=== PATIENT | male | born 1970 | race Caucasian/White ===

== ENCOUNTER 2017-05-10 13:25 | Emergency (ER) | payer OTHER ==
[2017-05-10 13:43] VITALS: BMI 29.0
[2017-05-10 13:44] VITALS: BP 115/81; PULSE 63; RESP 16; O2SAT 99
[2017-05-10 14:12] LABS: ALB/GLOB RATIO 1.4 (1.1-1.8); ALKALINE PHOSPHATASE 106 U/L (38-133); ALT/SGPT 68 U/L (7-56); AST/SGOT 47 U/L (15-59); BILIRUBIN,TOTAL 0.6 mg/dL (0.2-1.3); BLOOD UREA NITROGEN 15 mg/dL (7-21); CALCIUM 9.5 mg/dL (8.4-10.5); CARBON DIOXIDE 28 mmol/L (21-33); CHLORIDE 102 mmol/L (98-107); GFR AFRICAN-AMERICAN > 60; GLUCOSE,RANDOM 94 mg/dL (70-110); POTASSIUM 4.6 mmol/L (3.6-5.0); SODIUM 142 mmol/L (132-148); TOTAL PROTEIN 7.5 g/dL (5.8-8.3)
--- NOTE | 2017-05-10 14:12 | ED PDOC ---
Arrival/HPI - General Chief Complaint: Chest Pain Time Seen by Provider: 05/10/17 13:28 Historian: Patient - History of Present Illness Narrative History of Present Illness (Text): 05/10/17 14:11 A 46 year old male, whose past medical history includes hypothyroidism, allergic to contrast dye, presents to the emergency department with chest pain and shortness of breath, which began prior to arrival. The patient reports he was at home relaxing while waiting to to watch the game. When he suddenly began to have tightness and pressure on his chest, which caused him to have shortness of breath. The patient notes this chest pain is nothing compared to the chest pain he has had in the past. He admits to having acid reflux and headaches. He denies any smoking, recent travel, any prior history of DVT/PE, fever, cough, back pain, vision changes, hearing changes, headache, dysuria abdominal pain, nausea, diaphoresis, or any other complaints at this time. Patient notes treatment for a herniated disk at [facility] 1 month ago and a stress test 3 years ago. Time/Duration: Prior to Arrival Symptom Onset: Sudden Symptom Course: Unchanged Quality: Pressure, Tightness Activities at Onset: Rest, Light Context: Home Past Medical History - Provider Review Nursing Documentation Reviewed: Yes - Infectious Disease Hx of Infectious Diseases: None - Tetanus Immunization Tetanus Immunization: Unknown - Past Medical History Past Medical History: No Previous - Cardiac Hx Hypertension: Yes (NEWLY DX 2014) - Pulmonary Hx Asthma: Yes - Neurological Hx Neurological Disorder: Yes Hx Dizziness: Yes (05-07-15) - HEENT Hx HEENT Disorder: Yes (SINUS SX-DEVIATED SEPTUM) - Renal Hx Renal Disorder: No - Endocrine/Metabolic Hx Endocrine Disorders: No Hx Hypothyroidism: Yes - Hematological/Oncological Hx Blood Disorders: No - Integumentary Hx Dermatological Disorder: No - Musculoskeletal/Rheumatological Hx Musculoskeletal Disorders: No Hx Falls: Yes - Gastrointestinal Hx Gastrointestinal Disorders: Yes (APPENDECTOMY,INGUINAL HERNIA REPAIR BILATERAL) - Genitourinary/Gynecological Hx Genitourinary Disorders: No (ERECTILE DYSFUNCTION?) - Psychiatric Hx Anxiety: Yes Hx Substance Use: No - Surgical History Hx Appendectomy: Yes - Anesthesia Hx Anesthesia: Yes Hx Anesthesia Reactions: No Hx Malignant Hyperthermia: No - Suicidal Assessment Feels Threatened In Home Enviroment: No Family/Social History - Physician Review Nursing Documentation Reviewed: Yes Family/Social History: Unknown Family HX Smoking Status: Never Smoked Hx Alcohol Use: No Hx Substance Use: No Hx Substance Use Treatment: No Allergies/Home Meds Allergies/Adverse Reactions: Allergies Iodinated Contrast- Oral and IV Dye [Iodinated Contrast Media - IV Dye] Allergy (Verified 09/23/16 20:13) RASH Home Medications: Home Meds Medication Instructions Recorded Confirmed Levothyroxine Sodium 25 mcg PO DAILY 05/09/15 05/10/17 [Levothyroxine] Omeprazole [Omeprazole] 20 mg PO DAILY 09/23/16 05/10/17 Review of Systems - Review of Systems Constitutional: absent: Fevers Eyes: absent: Vision Changes ENT: absent: Hearing Changes Respiratory: SOB Cardiovascular: Chest Pain. absent: Edema, [place] Gastrointestinal: absent: Abdominal Pain, Nausea Genitourinary Male: absent: Dysuria Musculoskeletal: absent: Back Pain Skin: absent: Rash Neurological: absent: Headache Endocrine: absent: Diaphoresis Hemo/Lymphatic: absent: Easy Bleeding Psychiatric: Anxiety. absent: Suicidal Ideation Physical Exam - Physical Exam Narrative Physical Exam (Text): 05/10/17 14:20 Head: Atraumatic. Normocephalic. Eyes: PERRL. EOMI. Conjunctivae are not pale. ENT: Mucous membranes are moist and intact. Oropharynx is clear and symmetric. Neck: Supple. Full ROM. No JVD. No lymphadenopathy. Cardiovascular: Regular rate. Regular rhythm. No murmurs, rubs, or gallops. Distal pulses are 2+ and symmetric. Upper extremity pulses equal. Pulmonary/Chest: No evidence of respiratory distress. Clear to auscultation bilaterally. No wheezing, rales or rhonchi. Abdominal: Soft and non-distended. There is no tenderness. No rebound, guarding, or rigidity. No organomegaly. Good bowel sounds. Back: No CVA tenderness. Extremities: No edema. No cyanosis. No clubbing. Full range of motion in all extremities. No calf tenderness. Skin: Skin is warm and dry. No petechiae. No purpura. Neurological: Alert, awake, and oriented to person, place, time, and situation. Normal speech. Motor and sensory exam intact. Psychiatric: Appears to be anxious. Good eye contact. Normal interaction, affect, and behavior. Vital Signs Reviewed: Yes Vital Signs Pulse Resp BP Pulse Ox 05/10/17 13:26 63 16 115/81 99 Blood Pressure: Normal Pulse: Regular Respiratory Rate: Normal Appearance: Positive for: Well-Appearing, Non-Toxic, Comfortable Pain Distress: Mild Mental Status: Positive for: Alert and Oriented X 3 Medical Decision Making ED Course and Treatment: 05/10/17 14:21 Impression: A 46 year old male with chest pain and shortness of breath. Differential Diagnosis included but are not limited to: CAD vs. Anxiety vs. Reflux disease Plan: -- EKG -- Chest X-ray -- Labs -- Pepcid, Xanax -- Reassess and disposition Prior Visits: Notes and results from previous visits were reviewed. The patient was last seen in the emergency department on 09/23/16 for right side shoulder pain. The patient was discharged home. Progress Notes: Patient reports sudden onset of anterior squeezing chest pain associated with sensation of SOB. On initial exam, pain does not radiate to back, no hypoxia noted, no pleuritic pain noted. No calf pain. No prolonged travel. No history of smoking. EKG unremarkable. Patient states symptoms like this have occurred in past, although denies prior history of diagnosed CAD. He states he feels anxious, but states it is AFTER getting the discomfort. IV pepcid and xanax were given, and patient on re-evaluation had complete resolution of symptoms. As there is a change in the typical character and intensity of the pain he has experienced in the past, I have recommended admission to the hospital for observation and monitoring of symptoms, and stressed the limitations of ED lab evaluation and studies. He states he feels better and will follow-up if symptoms return, he has been advised of risks and expressed understanding of these risks. Patient will sign out against medical advice. 05/10/17 15:01 Leaving Against Medical Advice (AMA): This patient is choosing to leave against medical advice. I have personally explained to the patient that choosing to do so may result in permanent bodily harm or . I have discussed at great length that without further evaluation and monitoring there may be unforeseen circumstances and/or deterioration causing permanent bodily harm or as a result of their choice. The patient is alert, oriented, and shows the mental capacity to make clear decisions regarding the patients health care at this time. The patient continues to wish to leave against medical advice. In light of the patients decision to leave AMA, follow-up has been arranged and the patient is aware of the importance of following up as instructed. The patient has been advised that they should return to the ED immediately if they change their mind at any time, or if their condition begins to change or worsen in any way. - Lab Interpretations Lab Results: 05/10/17 13:40 05/10/17 13:40 Lab Results 05/10/17 13:40: TSH 3rd Generation 1.56 05/10/17 13:40: Sodium 142, Potassium 4.6, Chloride 102, Carbon Dioxide 28, Anion Gap 17, BUN 15, Creatinine 0.9, Est GFR ( Amer) > 60, Est GFR (Non- Af Amer) > 60, Random Glucose 94, Calcium 9.5, Total Bilirubin 0.6, AST 47, ALT 68 H, Alkaline Phosphatase 106, Total Creatine Kinase 150, Troponin I < 0.01, Total Protein 7.5, Albumin 4.4, Globulin 3.1, Albumin/Globulin Ratio 1.4 05/10/17 13:40: PT 11.9 H, INR 1.10 H, APTT 30.3 05/10/17 13:40: WBC 4.2 L, RBC 4.70, Hgb 14.7, Hct 41.2 L, MCV 87.7, MCH 31.3, MCHC 35.7, RDW 12.4, Plt Count 485 H, MPV 8.8, Gran % 41.5 L, Lymph % (Auto) 43.3 H, [place] % (Auto) 10.5 H, Eos % (Auto) 4.0, Baso % (Auto) 0.7, Gran # 1.74, Lymph # 1.8, [place] # 0.4, Eos # 0.2, Baso # 0.03 - RAD Interpretation Radiology Orders: 05/10/17 13:48 CHEST PORTABLE [RAD] Stat Scientific Photographer: Radiologist - EKG Interpretation EKG Interpretation (Text): EKG at 13:28 normal sinus rhythm rate of [address] elevations Interpreted by ED Physician: Yes Type: 12 lead EKG - Medication Orders Current Medication Orders: Discontinued Medications Alprazolam (Xanax) 0.25 mg PO STAT STA Stop: 05/10/17 14:06 Last Admin: 05/10/17 14:10 Dose: 0.25 mg Famotidine (Pepcid) 20 mg IVP STAT STA Stop: 05/10/17 14:06 Last Admin: 05/10/17 14:11 Dose: 20 mg - Scribe Statement The provider has reviewed the documentation as recorded by the Rayshawn Silva Provider Scribe Attestation: All medical record entries made by the Scribe were at my direction and personally dictated by me. I have reviewed the chart and agree that the record accurately reflects my personal performance of the history, physical exam, medical decision making, and the department course for this patient. I have also personally directed, reviewed, and agree with the discharge instructions and disposition. Disposition/Present on Arrival - Present on Arrival Any Indicators Present on Arrival: No History of DVT/PE: No History of Uncontrolled Diabetes: No Urinary Catheter: No History of Decub. Ulcer: No History Surgical Site Infection Following: None - Disposition Have Diagnosis and Disposition been Completed?: Yes Diagnosis: Chest pain, Anxiety Disposition: AGAINST MEDICAL ADVICE Disposition Time: 14:50 Patient Plan: Discharge Condition: GOOD Discharge Instructions (ExitCare): Chest Pain (ED) Referrals: PCP,NO [Primary Care Provider] - Follow up with primary Forms: [employer] (Portuguese)
[2017-05-10 14:13] LABS: BASO # 0.03 K/mm3 (0.0-2.0); BASO % 0.7 % (0.0-3.0); EOS # 0.2 (0.0-0.7); GRAN # 1.74 (1.4-6.5); GRAN % 41.5 % (50.0-68.0); HEMATOCRIT 41.2 % (42.0-52.0); LYMPH # 1.8 (1.2-3.4); LYMPH % 43.3 % (22.0-35.0); MEAN CELL VOLUME 87.7 fl (80.0-105.0); MEAN CORPUSCULAR HEMOGLOBIN 31.3 pg (25.0-35.0); MEAN CORPUSCULAR HGB CONC 35.7 g/dl (31.0-37.0); MEAN PLATELET VOLUME 8.8 fl (7.0-11.0); MONO # 0.4 (0.1-0.6); MONO % 10.5 % (1.0-6.0); RED CELL DISTRIBUTION WIDTH 12.4 % (11.5-14.5); WHITE BLOOD COUNT 4.2 10^3/ul (4.5-11.0)
[2017-05-10 14:23] LABS: TROPONIN I < 0.01 ng/mL
[2017-05-10 14:51] LABS: INR 1.1 (0.93-1.08); PARTIAL THROMBOPLASTIN TIME 30.3 Seconds (23.7-30.8)
--- NOTE | 2017-05-10 15:09 | RAD ---
HISTORY: chest COMPARISON: No prior. FINDINGS: LUNGS: No active pulmonary disease. PLEURA: No significant pleural effusion identified, no pneumothorax apparent. CARDIOVASCULAR: Normal. OSSEOUS STRUCTURES: No significant abnormalities. VISUALIZED UPPER ABDOMEN: Normal. OTHER FINDINGS: None. IMPRESSION: No active disease.
--- NOTE | 2017-05-11 10:13 | CARD ---
APPROVED REPORT EKG Measurement Heart [id number] <Conclusion> Normal sinus rhythm Normal ECG
== END 2017-05-10 15:10 | disposition left against medical advice (07) ==
LOC: ED 13:25
DX: F41.9 Anxiety disorder, unspecified (principal); R07.9 Chest pain, unspecified

== ENCOUNTER 2017-06-17 18:29 | Emergency (ER) | payer OTHER ==
[2017-06-17 18:29] VITALS: BMI 29.0
[2017-06-17 19:11] VITALS: TEMP 98.3
[2017-06-17] MEDS ORDERED: diaZEpam 10 mg/2 ml Inj IVP ONE (19:16)
[2017-06-17] MEDS ORDERED: Sodium Chloride 0.9% 1,000 ML IV STA (19:16)
--- NOTE | 2017-06-17 19:20 | ED PDOC ---
Arrival/HPI - General Chief Complaint: Pain, Chronic Time Seen by Provider: 06/17/17 19:08 Historian: Patient - History of Present Illness Narrative History of Present Illness (Text): 06/17/17 19:18 46 y/o male, pmh including hypothyroidism/multiple lumbar disc herniations, allergic to contrast, received epidural injection on 06/02/2017 c/o bilateral leg crampin and pain x 3 days. Pt. stated that he has no low back pain, just bilateral thigh and calfs with occasional muscle contraction and occasionally pain, no numbness or tingling, no night sweat, no rash, no other medical or psychological complaints. Past Medical History - Provider Review Nursing Documentation Reviewed: Yes - Infectious Disease Hx of Infectious Diseases: None - Tetanus Immunization Tetanus Immunization: Unknown - Past Medical History Past Medical History: No Previous - Cardiac Hx Cardiac Disorders: Yes Hx Hypertension: Yes (NEWLY DX 2014) - Pulmonary Hx Respiratory Disorders: Yes Hx Asthma: Yes - Neurological Hx Neurological Disorder: Yes Hx Dizziness: Yes (05-07-15) - HEENT Hx HEENT Disorder: Yes (SINUS SX-DEVIATED SEPTUM) - Renal Hx Renal Disorder: No - Endocrine/Metabolic Hx Endocrine Disorders: Yes Hx Hypothyroidism: Yes - Hematological/Oncological Hx Blood Disorders: No - Integumentary Hx Dermatological Disorder: No - Musculoskeletal/Rheumatological Hx Musculoskeletal Disorders: Yes Hx Back Pain: Yes Hx Falls: Yes - Gastrointestinal Hx Gastrointestinal Disorders: Yes (APPENDECTOMY,INGUINAL HERNIA REPAIR BILATERAL) - Genitourinary/Gynecological Hx Genitourinary Disorders: No (ERECTILE DYSFUNCTION?) - Psychiatric Hx Anxiety: Yes Hx Substance Use: No - Surgical History Hx Appendectomy: Yes - Anesthesia Hx Anesthesia: Yes Hx Anesthesia Reactions: No Hx Malignant Hyperthermia: No - Suicidal Assessment Feels Threatened In Home Enviroment: No Family/Social History - Physician Review Nursing Documentation Reviewed: Yes Family/Social History: Unknown Family HX Smoking Status: Never Smoked Hx Alcohol Use: No Hx Substance Use: No Hx Substance Use Treatment: No Allergies/Home Meds Allergies/Adverse Reactions: Allergies Iodinated Contrast- Oral and IV Dye [Iodinated Contrast Media - IV Dye] Allergy (Verified 06/17/17 19:06) RASH Home Medications: Home Meds Medication Instructions Recorded Confirmed Levothyroxine Sodium 25 mcg PO DAILY 05/09/15 06/17/17 [Levothyroxine] Omeprazole [Omeprazole] 20 mg PO DAILY 09/23/16 06/17/17 Omeprazole [Omeprazole] 20 mg PO DAILY 06/17/17 06/17/17 Review of Systems - Review of Systems Constitutional: absent: Fatigue, Fevers Eyes: absent: Vision Changes ENT: absent: Hearing Changes Respiratory: absent: SOB, Cough Cardiovascular: absent: Chest Pain Gastrointestinal: absent: Abdominal Pain, Nausea, Vomiting Musculoskeletal: Arthralgias, Myalgias. absent: Back Pain, Neck Pain Skin: absent: Rash, Pruritis Neurological: absent: Headache Psychiatric: absent: Anxiety, Depression Physical Exam Vital Signs Reviewed: Yes Vital Signs Temp Pulse Resp BP Pulse Ox 06/17/17 18:51 98.3 F 64 18 137/82 99 Temperature: Afebrile Blood Pressure: Normal Pulse: Regular Respiratory Rate: Normal Appearance: Positive for: Well-Appearing, Non-Toxic, Comfortable Pain Distress: Moderate Mental Status: Positive for: Alert and Oriented X 3 - Systems Exam Head: Present: Atraumatic, Normocephalic Pupils: Present: PERRL Extroacular Muscles: Present: EOMI Conjunctiva: Present: Normal Mouth: Present: Moist Mucous Membranes Neck: Present: Normal Range of Motion Respiratory/Chest: Present: Clear to Auscultation, Good Air Exchange. No: Respiratory Distress, Accessory Muscle Use Cardiovascular: Present: Regular Rate and Rhythm, Normal S1, S2. No: Murmurs Abdomen: Present: Normal Bowel Sounds. No: Tenderness, Distention, Peritoneal Signs Back: Present: Normal Inspection, Other (Thoracic to LS spine: no midline tenderness or step off, no rash, no ecchymosis, FROM without limitation , sensation intact, motor 5/5. ). No: CVA Tenderness, Midline Tenderness, Paraspinal Tenderness, Pain with Leg Raise, Decubitus Ulcer Upper Extremity: Present: Normal Inspection. No: Cyanosis, Edema Lower Extremity: Present: Normal Inspection, Other (Bilateral lower extremities : no tenderness or swelling, no deformity, no cellulitis or ulcer, FROM without limitation, sensation intact, motor 5/5, +DPPT pulses, capillary refill< 2 seconds, neurovascular intact. ). No: Edema Neurological: Present: GCS=15, CN II-XII Intact, Speech Normal, Motor Func Grossly Intact, Gait Normal, Memory Normal Skin: Present: Warm, Dry, Normal Color. No: Rashes Psychiatric: Present: Alert, Oriented x 3, Normal Insight, Normal Concentration Medical Decision Making ED Course and Treatment: 06/17/17 19:24 -labs -CT LS spine -Bilateral lower extremity venuous doppler -IVF/toradol/valium -observe and reassess 06/17/17 22:08 -Bilateral lower extremities venuous doppler: as per preliminary report, there is no acute DVT -CT Lumbar spine: No acute CT abnormality of the lumbar spine identified. -Labs are non-significant. -Pt. feels much better after the IVF and medications, no muscle contractions or tremor, request to be discharged home, will discharge home. -Discharge home with flexeril, naproxen, stay hydrated, follow up with your own pmd and orthopedic within 2 days, return to the ER for any new or worsening signs or symptoms. - Lab Interpretations Lab Results: 06/17/17 19:35 06/17/17 19:35 Lab Results 06/17/17 19:35: WBC 5.0, RBC 4.66, Hgb 14.5, Hct 40.6 L, MCV 87.1, MCH 31.1, MCHC 35.7, RDW 12.3, Plt Count 438, MPV 8.7, Gran % 46.9 L, Lymph % (Auto) 40.9 H, [place] % (Auto) 7.8 H, Eos % (Auto) 3.4, Baso % (Auto) 1.0, Gran # 2.35, Lymph # 2.1, [place] # 0.4, Eos # 0.2, Baso # 0.05 06/17/17 19:35: Sodium 143, Potassium 4.0, Chloride 103, Carbon Dioxide 29, Anion Gap 15, BUN 12, Creatinine 1.0, Est GFR ( Amer) > 60, Est GFR (Non- Af Amer) > 60, Random Glucose 105, Calcium 9.4, Magnesium 2.1, Total Bilirubin 0.6, AST 39, ALT 65 H, Alkaline Phosphatase 92, Total Creatine Kinase 120, Total Protein 7.5, Albumin 4.5, Globulin 3.1, Albumin/Globulin Ratio 1.5 I have reviewed the lab results: Yes Interpretation: No clinic. lab abnormalty - RAD Interpretation Radiology Orders: 06/17/17 19:15 DUPLEX LOWER EXTRM VEIN BILAT [US] Stat 06/17/17 19:21 LUMBAR SPINE W/O CONTRAST [CT] Stat Bilateral lower extremities venuous doppler: as per preliminary report, there is no acute DVT CT Lumbar spine: FINDINGS: VERTEBRAE: No acute fractures visualized. No evidence of significant vertebral subluxation. No evidence of acute vertebral compression fractures. No evidence of destructive or otherwise aggressive-appearing vertebral lesions. DISCS/SPINAL CANAL/NEURAL FORAMINA: Minimal, multilevel degenerative disc disease is noted, but overall the lumbar disc heights are preserved. No evidence of bony spinal canal stenosis. SOFT TISSUES: No acute abnormality of the visualized soft tissues is seen. KIDNEYS AND URETERS: Low density probable cyst in the left kidney IMPRESSION: - No acute CT abnormality of the lumbar spine identified. - See above for remaining findings. Thank you for allowing us to participate in the care of your patient. Dictated and Authenticated by: Shayna Gastelum MD 06/17/2017 9:56 PM Eastern Time ([place] & [place]) Biscuit Packer: Radiologist - Medication Orders Current Medication Orders: Discontinued Medications Diazepam (Valium) 7.5 mg IVP ONCE ONE PRN Reason: Protocol Stop: 06/17/17 19:17 Last Admin: 06/17/17 19:42 Dose: 7.5 mg IVP Administration Document 06/17/17 19:42 HI (Rec: 06/17/17 19:42 [email or web address]) Charges for Administration # of IVP Administrations 1 Sodium Chloride (Sodium Chloride 0.9%) 1,000 mls @ 999 mls/hr IV .Q1H1M STA Stop: 06/17/17 20:16 Last Admin: 06/17/17 19:30 Dose: 999 mls/hr eMAR Start Stop Document 06/17/17 19:30 HI (Rec: 06/17/17 19:39 [email or web address]) Intravenous Solution Start Date 09/27/17 Start Time 19:30 Ketorolac Tromethamine (Toradol) 30 mg IVP STAT STA Stop: 06/17/17 19:17 Last Admin: 06/17/17 19:39 Dose: 30 mg MAR Pain Assessment Document 06/17/17 19:39 HI (Rec: 06/17/17 19:42 [facility] Pain Reassessment Is this a pain reassessment? No Sleep Is patient sleeping during reassessment? No Presence of Pain Presence of Pain Yes IVP Administration Document 06/17/17 19:39 HI (Rec: 06/17/17 19:42 [facility] Charges for Administration # of IVP Administrations 1 - PA / [employer] MEMBER / Resident Statement / has reviewed & agrees with the documentation as recorded. Disposition/Present on Arrival - Present on Arrival Any Indicators Present on Arrival: No History of DVT/PE: No History of Uncontrolled Diabetes: No Urinary Catheter: No History of Decub. Ulcer: No History Surgical Site Infection Following: None - Disposition Have Diagnosis and Disposition been Completed?: Yes Diagnosis: Leg pain Disposition: HOME/ ROUTINE Disposition Time: 22:09 Patient Plan: Discharge Condition: IMPROVED Additional Instructions: -Discharge home with flexeril, naproxen, stay hydrated, follow up with your own pmd and orthopedic within 2 days, return to the ER for any new or worsening signs or symptoms. Prescriptions: Cyclobenzaprine [Cyclobenzaprine HCl] 10 mg PO TID PRN #21 tab PRN Reason: Other Naproxen 500 mg PO BID PRN #12 tab PRN Reason: Other Referrals: Jose Manuel Hahn MD [Primary Care Provider] - Follow up with primary Michael Gill DO [Staff Provider] - Follow up with primary Forms: [employer] (Citizen Of [place]), SCHOOL NOTE
[2017-06-17 19:48] LABS: BASO # 0.05 K/mm3 (0.0-2.0); EOS # 0.2 (0.0-0.7); EOS % 3.4 % (1.5-5.0); GRAN # 2.35 (1.4-6.5); GRAN % 46.9 % (50.0-68.0); HEMATOCRIT 40.6 % (42.0-52.0); LYMPH # 2.1 (1.2-3.4); LYMPH % 40.9 % (22.0-35.0); MEAN CELL VOLUME 87.1 fl (80.0-105.0); MEAN CORPUSCULAR HEMOGLOBIN 31.1 pg (25.0-35.0); MEAN CORPUSCULAR HGB CONC 35.7 g/dl (31.0-37.0); MEAN PLATELET VOLUME 8.7 fl (7.0-11.0); MONO # 0.4 (0.1-0.6); MONO % 7.8 % (1.0-6.0); RED CELL DISTRIBUTION WIDTH 12.3 % (11.5-14.5)
[2017-06-17 19:54] LABS: ALB/GLOB RATIO 1.5 (1.1-1.8); ALKALINE PHOSPHATASE 92 U/L (38-126); ALT/SGPT 65 U/L (7-56); AST/SGOT 39 U/L (17-59); BILIRUBIN,TOTAL 0.6 mg/dL (0.2-1.3); BLOOD UREA NITROGEN 12 mg/dL (7-21); CALCIUM 9.4 mg/dL (8.4-10.5); CARBON DIOXIDE 29 mmol/L (21-33); CHLORIDE 103 mmol/L (98-107); GFR AFRICAN-AMERICAN > 60; GLUCOSE,RANDOM 105 mg/dL (70-110); MAGNESIUM 2.1 mg/dL (1.7-2.2); SODIUM 143 mmol/L (132-148); TOTAL PROTEIN 7.5 g/dL (5.8-8.3)
--- NOTE | 2017-06-17 21:56 | CT ---
EXAM: CT Lumbar Spine Without Intravenous Contrast EXAM DATE/TIME: 06/17/2017 7:21 PM CLINICAL HISTORY: 46 years old, male; Pain; Low back pain and other: Pain both lower extremities; Additional info: Chronic low back pain, bilateral leg pain TECHNIQUE: Axial computed tomography images of the lumbar spine without intravenous contrast. All CT scans at this facility use one or more dose reduction techniques, viz.: automated exposure control; ma/kV adjustment per patient size (including targeted exams where dose is matched to indication; i.e. head); or iterative reconstruction technique. Coronal and sagittal reformatted images were created and reviewed. COMPARISON: No relevant prior studies available. FINDINGS: VERTEBRAE: No acute fractures visualized. No evidence of significant vertebral subluxation. No evidence of acute vertebral compression fractures. No evidence of destructive or otherwise aggressive-appearing vertebral lesions. DISCS/SPINAL CANAL/NEURAL FORAMINA: Minimal, multilevel degenerative disc disease is noted, but overall the lumbar disc heights are preserved. No evidence of bony spinal canal stenosis. SOFT TISSUES: No acute abnormality of the visualized soft tissues is seen. KIDNEYS AND URETERS: Low density probable cyst in the left kidney. IMPRESSION: - No acute CT abnormality of the lumbar spine identified. - See above for remaining findings.
[2017-06-17 22:30] VITALS: BP 124/54; PULSE 60; RESP 16; O2SAT 100
--- NOTE | 2017-06-18 15:05 | US ---
HISTORY: Leg pain and swelling. Evaluate for DVT PHYSICIAN(S): Perry Hernandez MD. TECHNIQUE: Duplex sonography and color-flow Doppler with graded compression were used to evaluate the deep venous systems of both lower extremities. FINDINGS: The visualized deep venous systems of both lower extremities are sonographically normal and compressible. Normal wave forms and augmentation are seen. There is no sonographic evidence for deep venous thrombosis in the visualized segments of both lower extremities. IMPRESSION: No sonographic evidence for deep venous thrombosis in the visualized segments of both lower extremities.
== END 2017-06-17 22:37 | disposition home or self-care (01) ==
LOC: ED 18:29
DX: M79.604 Pain in right leg (principal); M79.605 Pain in left leg; I10 Essential (primary) hypertension
CPT/HCPCS: 72131; 80053; 82550; 83735; 85025; 93970; 96374; 96375; 99284; J1885; J3360; J7040

== ENCOUNTER 2017-08-31 10:51 | Observation (INO) | payer OTHER ==
--- NOTE | 2017-08-31 11:01 | ED PDOC ---
Arrival/HPI - General Time Seen by Provider: 08/31/17 10:59 Historian: Patient - History of Present Illness Narrative History of Present Illness (Text): 08/31/17 11:01 46 y/o male, pmh including gerd/hypothyroidism, allergic to IV contrast only, c/ o rectal pain x 2 days. Aching pain, painful to sit and touch, no fever or chills, no headache or night sweat, no rash, no numbness or tingling, no palpitation, no fever or chills, no other medical or psychological complaints. Past Medical History - Provider Review Nursing Documentation Reviewed: Yes - Infectious Disease Hx of Infectious Diseases: None - Tetanus Immunization Tetanus Immunization: Unknown - Past Medical History Past Medical History: No Previous - Cardiac Hx Cardiac Disorders: Yes Hx Hypertension: Yes (NEWLY DX 2014) - Pulmonary Hx Respiratory Disorders: Yes Hx Asthma: Yes - Neurological Hx Neurological Disorder: Yes Hx Dizziness: Yes (05-07-15) - HEENT Hx HEENT Disorder: Yes (SINUS SX-DEVIATED SEPTUM) - Renal Hx Renal Disorder: No - Endocrine/Metabolic Hx Endocrine Disorders: No - Hematological/Oncological Hx Blood Disorders: No - Integumentary Hx Dermatological Disorder: No - Musculoskeletal/Rheumatological Hx Musculoskeletal Disorders: No - Gastrointestinal Hx Gastrointestinal Disorders: Yes (APPENDECTOMY,INGUINAL HERNIA REPAIR BILATERAL) - Genitourinary/Gynecological Hx Genitourinary Disorders: No (ERECTILE DYSFUNCTION?) - Psychiatric Hx Anxiety: Yes Hx Substance Use: No - Surgical History Hx Appendectomy: Yes - Anesthesia Hx Anesthesia: Yes Hx Anesthesia Reactions: No Hx Malignant Hyperthermia: No - Suicidal Assessment Feels Threatened In Home Enviroment: No Family/Social History - Physician Review Nursing Documentation Reviewed: Yes Family/Social History: Unknown Family HX Smoking Status: Never Smoked Hx Alcohol Use: No Hx Substance Use: No Hx Substance Use Treatment: No Allergies/Home Meds Allergies/Adverse Reactions: Allergies Iodinated Contrast- Oral and IV Dye [Iodinated Contrast Media - IV Dye] Allergy (Verified 08/31/17 17:44) RASH Home Medications: Home Meds Medication Instructions Recorded Confirmed Levothyroxine Sodium 100 mcg PO DAILY 05/09/15 08/31/17 [Levothyroxine] Omeprazole [Omeprazole] 20 mg PO DAILY 06/17/17 08/31/17 Aspirin [Ecotrin] 81 mg PO DAILY 08/31/17 08/31/17 Review of Systems - Review of Systems Constitutional: absent: Fatigue, Fevers Eyes: absent: Vision Changes ENT: absent: Hearing Changes Respiratory: absent: SOB, Cough Cardiovascular: absent: Chest Pain Gastrointestinal: Other (+rectal pain). absent: Abdominal Pain, Nausea, Vomiting Skin: absent: Rash, Pruritis Neurological: absent: Headache, Dizziness Psychiatric: absent: Anxiety, Depression Physical Exam Vital Signs Temp Pulse Resp BP Pulse Ox 08/31/17 16:42 98.3 F 63 16 125/89 98 08/31/17 15:59 65 18 145/98 H 99 08/31/17 13:09 67 18 131/87 98 08/31/17 13:00 67 18 131/87 98 08/31/17 11:05 98.3 F 70 18 139/90 99 Temperature: Afebrile Blood Pressure: Normal Pulse: Regular Respiratory Rate: Normal Appearance: Positive for: Well-Appearing, Non-Toxic, Comfortable Pain Distress: Moderate Mental Status: Positive for: Alert and Oriented X 3 - Systems Exam Head: Present: Atraumatic, Normocephalic Pupils: Present: PERRL Extroacular Muscles: Present: EOMI Conjunctiva: Present: Normal Mouth: Present: Moist Mucous Membranes Neck: Present: Normal Range of Motion Respiratory/Chest: Present: Clear to Auscultation, Good Air Exchange. No: Respiratory Distress, Accessory Muscle Use Cardiovascular: Present: Regular Rate and Rhythm, Normal S1, S2. No: Murmurs Abdomen: Present: Normal Bowel Sounds. No: Tenderness, Distention, Peritoneal Signs Rectal: Present: Other (+ttp on the perianal region especially touching the rectal sphincter region. ). No: Occult Blood, Rectal Tenderness, Gross Blood, Melena, Hemorrhoids, Normal Rectal Tone Back: Present: Normal Inspection Upper Extremity: Present: Normal Inspection. No: Cyanosis, Edema Lower Extremity: Present: Normal Inspection. No: Edema Neurological: Present: GCS=15, Speech Normal, Motor Func Grossly Intact, Gait Normal, Memory Normal Skin: Present: Warm, Dry, Normal Color. No: Rashes Psychiatric: Present: Alert, Oriented x 3, Normal Insight, Normal Concentration Medical Decision Making ED Course and Treatment: 08/31/17 11:35 -Labs -CT abdomen and pelvis with oral contrast -IVF/pepcid/zofran/toradol -Pt. examined by his surgeon DR. Dk Pillai and he agreed on the orders -Observe and reassess 08/31/17 15:35 -Labs are non-significant -CT abdomen and pelvis show no acute findings -Paging Dr. Peng for update. 08/31/17 15:54 -Dr. Peng called back, discussed the case in detail as the patient still in pain, suggest to admit to his service and request DR. Wheat for medical consult , request paging vice president of advertising. -I discussed with DR. Griffin and discussed about the case, he will put in the admission order. 08/31/17 16:12 -I spoke to the vice president of advertising Dr. Gupta, discussed about the case/labs/ radiology result, he will evaluate the patient and discuss with Dr. Peng. -EKG: SB @ 56 BPM, no ST elevation or depression, chronic T wave inversions noted on lead III and aVF, compared with previous ekg. 08/31/17 20:29 -Chest xray: no active disease - Lab Interpretations Lab Results: 08/31/17 11:40 08/31/17 11:40 Lab Results 08/31/17 12:38: Blood Type Confirm O NEGATIVE 08/31/17 11:40: Blood Type O NEGATIVE, Antibody Screen Negative, BBK History Checked No verified bt 08/31/17 11:40: PT 13.0 H, INR 1.18 H, APTT 33.3 08/31/17 11:40: Sodium 142, Potassium 4.2, Chloride 102, Carbon Dioxide 28, Anion Gap 16, BUN 13, Creatinine 0.9, Est GFR ( Amer) > 60, Est GFR (Non- Af Amer) > 60, Random Glucose 122 H, Calcium 9.4, Magnesium 2.0, Total Bilirubin 0.6, AST 36, ALT 48, Alkaline Phosphatase 83, Total Protein 7.9, Albumin 4.4, Globulin 3.5, Albumin/Globulin Ratio 1.3 08/31/17 11:40: WBC 4.7, RBC 4.83, Hgb 15.1, Hct 44.1, MCV 91.3 D, MCH 31.3, MCHC 34.2, RDW 12.8, Plt Count 470 H, MPV 9.1, Gran % 52.0, Lymph % (Auto) 36.9 H, [place] % (Auto) 7.3 H, Eos % (Auto) 3.2, Baso % (Auto) 0.6, Gran # 2.42, Lymph # 1.7, [place] # 0.3, Eos # 0.2, Baso # 0.03 I have reviewed the lab results: Yes - RAD Interpretation Radiology Orders: 08/31/17 11:26 ABDOMEN & PELVIS [ABD & PELVIS PO CONTRAST ONLY] [CT] Stat 08/31/17 15:53 CHEST PORTABLE [RAD] Stat PROCEDURE: CT Abdomen and Pelvis without intravenous contrast HISTORY: perianal pain, leakage?, fistula? abscess? COMPARISON: None. TECHNIQUE: Without contrast.. Contrast Dose: Radiation dose: Total exam DLP = 523 mGy-cm. This CT exam was performed using one or more of the following dose reduction techniques: Automated exposure control, adjustment of the mA and/or kV according to patient size, and/or use of iterative reconstruction technique. FINDINGS: LOWER THORAX: Unremarkable. LIVER: Unremarkable. No gross lesion or ductal dilatation. GALLBLADDER AND BILE DUCTS: Unremarkable. PANCREAS: Unremarkable. No gross lesion or ductal dilatation. SPLEEN: Unremarkable. ADRENALS: Unremarkable. No mass. KIDNEYS AND URETERS: Unremarkable. No hydronephrosis. No solid mass. VASCULATURE: Unremarkable. No aortic aneurysm. BOWEL: Unremarkable. No obstruction. No gross mural thickening. APPENDIX: Unremarkable. Normal appendix. PERITONEUM: Unremarkable. No free fluid. No free air. LYMPH NODES: Unremarkable. No enlarged lymph nodes. BLADDER: Unremarkable. REPRODUCTIVE: Unremarkable. BONES: No acute fracture. OTHER FINDINGS: There are no inflammatory changes seen in the region of the perineum to suggest fistula or abscess IMPRESSION: No acute findings Chest xray: no active disease Networks Computer Consultant: Radiologist - EKG Interpretation EKG Interpretation (Text): 08/31/17 16:10 -EKG: SB @ 56 BPM, no ST elevation or depression, chronic T wave inversions noted on lead III and aVF, compared with previous ekg. Interpreted by ED Physician: Yes Type: 12 lead EKG Comparison: Com.w/previous EKG - Medication Orders Current Medication Orders: Hydromorphone HCl (Dilaudid) 0.5 mg IVP Q4H PRN PRN Reason: Pain, severe (8-10) Metronidazole (Flagyl) 100 mls @ 100 mls/hr IV Q8 ABDI PRN Reason: Protocol Ceftriaxone Sodium (Rocephin 1 Gram Ivpb (D5w)) 1 gm in 100 mls @ 100 mls/hr IVPB DAILY ABDI PRN Reason: Protocol Levothyroxine Sodium (Synthroid) 100 mcg PO 0600 ABDI Magnesium Citrate (Citrate Of Mag) 150 ml PO ONCE ONE Stop: 08/31/17 20:28 Neomycin Sulfate (Neomycin Tab) 500 mg PO Q6 ABDI Ondansetron HCl (Zofran Inj) 4 mg IVP Q4 PRN PRN Reason: Nausea/Vomiting Pantoprazole Sodium (Protonix Inj) 40 mg IVP DAILY ABDI Discontinued Medications Famotidine (Pepcid) 20 mg IVP STAT STA Stop: 08/31/17 11:35 Last Admin: 08/31/17 11:53 Dose: 20 mg IVP Administration Document 08/31/17 11:53 CNR (Rec: 08/31/17 11:53 CNR [id number]) Charges for Administration # of IVP Administrations 1 Sodium Chloride (Sodium Chloride 0.9%) 1,000 mls @ 999 mls/hr IV .Q1H1M STA Stop: 08/31/17 12:27 Last Admin: 08/31/17 11:52 Dose: 999 mls/hr eMAR Start Stop Document 08/31/17 11:52 CNR (Rec: 08/31/17 11:52 CNR [id number]) Intravenous Solution Start Date 08/31/17 Start Time 11:52 Ketorolac Tromethamine (Toradol) 30 mg IVP STAT STA Stop: 08/31/17 11:21 Last Admin: 08/31/17 11:53 Dose: 30 mg MAR Pain Assessment Document 08/31/17 11:53 CNR (Rec: 08/31/17 11:53 CNR [id number]) Pain Reassessment Is this a pain reassessment? Yes IVP Administration Document 08/31/17 11:53 CNR (Rec: 08/31/17 11:53 CNR [id number]) Charges for Administration # of IVP Administrations 1 Lidocaine (Lidocaine 5%) 0 gm TOP STAT STA Stop: 08/31/17 16:25 Last Admin: 08/31/17 16:40 Dose: Not Given Non-Admin Reason: Patient Refused Ondansetron HCl (Zofran Inj) 4 mg IVP STAT STA Stop: 08/31/17 11:35 Last Admin: 08/31/17 11:52 Dose: 4 mg IVP Administration Document 08/31/17 11:52 CNR (Rec: 08/31/17 11:52 CNR [id number]) Charges for Administration # of IVP Administrations 1 - PA / RESEARCH CONSULTANT / Resident Statement MD/DO has reviewed & agrees with the documentation as recorded. Disposition/Present on Arrival - Present on Arrival Any Indicators Present on Arrival: No History of DVT/PE: No History of Uncontrolled Diabetes: No Urinary Catheter: No History of Decub. Ulcer: No History Surgical Site Infection Following: None - Disposition Have Diagnosis and Disposition been Completed?: Yes Diagnosis: Intractable pain, Rectal pain, Anal fissure Disposition: HOSPITALIZED Disposition Time: 15:56 Patient Plan: Admission Patient Problems: Current Active Problems Problem Status Onset Intractable pain Acute Rectal pain Acute Anal fissure Acute Condition: STABLE
[2017-08-31 11:19] VITALS: BMI 29.2
[2017-08-31] MEDS ORDERED: Sodium Chloride 0.9% 1,000 ML IV STA (11:27)
[2017-08-31] MEDS ORDERED: Barium Sulfate Susp 2.1% w/v, 2.0% w/w 450 mL Bottle PO ONE (11:29)
[2017-08-31 12:10] LABS: ALB/GLOB RATIO 1.3 (1.1-1.8); ALKALINE PHOSPHATASE 83 U/L (38-126); ALT/SGPT 48 U/L (7-56); AST/SGOT 36 U/L (17-59); BILIRUBIN,TOTAL 0.6 mg/dL (0.2-1.3); BLOOD UREA NITROGEN 13 mg/dL (7-21); CALCIUM 9.4 mg/dL (8.4-10.5); CARBON DIOXIDE 28 mmol/L (21-33); CHLORIDE 102 mmol/L (98-107); GFR AFRICAN-AMERICAN > 60; GLUCOSE,RANDOM 122 mg/dL (70-110); POTASSIUM 4.2 mmol/L (3.6-5.0); SODIUM 142 mmol/L (132-148); TOTAL PROTEIN 7.9 g/dL (5.8-8.3)
[2017-08-31 12:13] LABS: BASO # 0.03 K/mm3 (0.0-2.0); BASO % 0.6 % (0.0-3.0); EOS # 0.2 (0.0-0.7); EOS % 3.2 % (1.5-5.0); GRAN # 2.42 (1.4-6.5); HEMATOCRIT 44.1 % (42.0-52.0); LYMPH # 1.7 (1.2-3.4); LYMPH % 36.9 % (22.0-35.0); MEAN CELL VOLUME 91.3 fl (80.0-105.0); MEAN CORPUSCULAR HEMOGLOBIN 31.3 pg (25.0-35.0); MEAN CORPUSCULAR HGB CONC 34.2 g/dl (31.0-37.0); MEAN PLATELET VOLUME 9.1 fl (7.0-11.0); MONO # 0.3 (0.1-0.6); MONO % 7.3 % (1.0-6.0); RED CELL DISTRIBUTION WIDTH 12.8 % (11.5-14.5); WHITE BLOOD COUNT 4.7 10^3/ul (4.5-11.0)
[2017-08-31 12:21] LABS: INR 1.18 (0.93-1.08); PARTIAL THROMBOPLASTIN TIME 33.3 Seconds (25.1-36.5)
--- NOTE | 2017-08-31 15:21 | CT ---
PROCEDURE: CT Abdomen and Pelvis without intravenous contrast HISTORY: perianal pain, leakage?, fistula? abscess? COMPARISON: None. TECHNIQUE: Without contrast.. Contrast Dose: Radiation dose: Total exam DLP = 523 mGy-cm. This CT exam was performed using one or more of the following dose reduction techniques: Automated exposure control, adjustment of the mA and/or kV according to patient size, and/or use of iterative reconstruction technique. FINDINGS: LOWER THORAX: Unremarkable. LIVER: Unremarkable. No gross lesion or ductal dilatation. GALLBLADDER AND BILE DUCTS: Unremarkable. PANCREAS: Unremarkable. No gross lesion or ductal dilatation. SPLEEN: Unremarkable. ADRENALS: Unremarkable. No mass. KIDNEYS AND URETERS: Unremarkable. No hydronephrosis. No solid mass. VASCULATURE: Unremarkable. No aortic aneurysm. BOWEL: Unremarkable. No obstruction. No gross mural thickening. APPENDIX: Unremarkable. Normal appendix. PERITONEUM: Unremarkable. No free fluid. No free air. LYMPH NODES: Unremarkable. No enlarged lymph nodes. BLADDER: Unremarkable. REPRODUCTIVE: Unremarkable. BONES: No acute fracture. OTHER FINDINGS: There are no inflammatory changes seen in the region of the perineum to suggest fistula or abscess IMPRESSION: No acute findings
[2017-08-31] MEDS ORDERED: Lidocaine 5% Oint(35 gm) TOP STA (16:24)
[2017-08-31] MEDS ORDERED: HYDROmorphone 0.5 mg/0.5 ml ISec IVP PRN (16:25)
--- NOTE | 2017-08-31 16:52 | CP.PCM.HP ---
<Helio Bentley - Last Filed: 08/31/17 16:38> History of Present Illness - History of Present Illness History of Present Illness: Surgery 46 M w PMH of hypothryoidism and GERD came to ED with rectal pain. Pt reports that pain is intermittent and had for a long time. Recently it has gotten more painful. Pain is sharp and localized. Denies abd pain, N/V/D/CP/SOB/hematochezia /hematemesis/melena. Pt tired hemorrhoid cream and sitz bath but didn't help. Pt has regular BM and it is soft. No blood with BM. PMH: hypothyroid, GERD PSH: None Med: synthroid, ASA 81 , Omerprazole Present on Admission - Present on Admission Any Indicators Present on Admission: No Review of Systems - Review of Systems Review of Systems: See HPI Past Patient History - Infectious Disease Hx of Infectious Diseases: None - Tetanus Immunizations Tetanus Immunization: Unknown - Past Social History Smoking Status: Never Smoked - CARDIAC Hx Cardiac Disorders: Yes Hx Hypertension: Yes (NEWLY DX 2014) - PULMONARY Hx Respiratory Disorders: Yes Hx Asthma: Yes - NEUROLOGICAL Hx Neurological Disorder: Yes Hx Dizziness: Yes (05-07-15) - HEENT Hx HEENT Problems: Yes (SINUS SX-DEVIATED SEPTUM) - RENAL Hx Chronic Kidney Disease: No - ENDOCRINE/METABOLIC Hx Endocrine Disorders: No - HEMATOLOGICAL/ONCOLOGICAL Hx Blood Disorders: No - INTEGUMENTARY Hx Dermatological Problems: No - MUSCULOSKELETAL/RHEUMATOLOGICAL Hx Musculoskeletal Disorders: No - GASTROINTESTINAL Hx Gastrointestinal Disorders: Yes (APPENDECTOMY,INGUINAL HERNIA REPAIR BILATERAL) - GENITOURINARY/GYNECOLOGICAL Hx Genitourinary Disorders: No (ERECTILE DYSFUNCTION?) - PSYCHIATRIC Hx Anxiety: Yes Hx Substance Use: No - SURGICAL HISTORY Hx Appendectomy: Yes - ANESTHESIA Hx Anesthesia: Yes Hx Anesthesia Reactions: No Hx Malignant Hyperthermia: No Meds Allergies/Adverse Reactions: Allergies Allergy/AdvReac Type Severity Reaction Status Date / Time Iodinated Contrast- Oral and Allergy RASH Verified 08/31/17 17:44 IV Dye [Iodinated Contrast Media - IV Dye] Physical Exam - Constitutional Appears: No Acute Distress - Head Exam Head Exam: ATRAUMATIC, NORMAL INSPECTION, NORMOCEPHALIC - Eye Exam Eye Exam: EOMI, Normal appearance, PERRL Pupil Exam: NORMAL ACCOMODATION, PERRL - ENT Exam ENT Exam: Mucous Membranes Moist, Normal Exam - Neck Exam Neck exam: Positive for: Normal Inspection - Respiratory Exam Respiratory Exam: Clear to Auscultation Bilateral, NORMAL BREATHING PATTERN - Cardiovascular Exam Cardiovascular Exam: REGULAR RHYTHM - GI/Abdominal Exam GI & Abdominal Exam: Normal Bowel Sounds, Soft. absent: Tenderness - Rectal Exam Rectal Exam: absent: Black Stool, Bloody Stool, Fecal Impaction Additional comments: TTP. Normal sphincter tone. No external hemorrhoids visible. NO eryhtema. No thrombosis - Exam Exam: Circumcision - Extremities Exam Extremities exam: Positive for: full ROM, normal inspection - Back Exam Back exam: NORMAL INSPECTION - Neurological Exam Neurological exam: Alert, CN II-XII Intact, Normal Gait, Oriented x3, Reflexes Normal - Psychiatric Exam Psychiatric exam: Normal Affect, Normal Mood - Skin Skin Exam: Dry, Intact, Normal Color, Warm Results - Vital Signs Recent Vital Signs: Last Vital Signs Temp 98.3 F 08/31/17 11:05 Pulse 65 08/31/17 15:59 Resp 18 08/31/17 15:59 BP 145/98 H 08/31/17 15:59 Pulse Ox 99 08/31/17 15:59 - Labs Result Diagrams: 08/31/17 11:40 08/31/17 11:40 Labs: Laboratory Results - last 24 hr 08/31/17 08/31/17 08/31/17 11:40 11:40 11:40 WBC 4.7 RBC 4.83 Hgb 15.1 Hct 44.1 MCV 91.3 D MCH 31.3 MCHC 34.2 RDW 12.8 Plt Count 470 H MPV 9.1 Gran % 52.0 Lymph % (Auto) 36.9 H [place] % (Auto) 7.3 H Eos % (Auto) 3.2 Baso % (Auto) 0.6 Gran # 2.42 Lymph # 1.7 [place] # 0.3 Eos # 0.2 Baso # 0.03 PT 13.0 H INR 1.18 H APTT 33.3 Sodium 142 Potassium 4.2 Chloride 102 Carbon Dioxide 28 Anion Gap 16 BUN 13 Creatinine 0.9 Est GFR ( Amer) > 60 Est GFR (Non-Af Amer) > 60 Random Glucose 122 H Calcium 9.4 Magnesium 2.0 Total Bilirubin 0.6 AST 36 ALT 48 Alkaline Phosphatase 83 Total Protein 7.9 Albumin 4.4 Globulin 3.5 Albumin/Globulin Ratio 1.3 Blood Type Blood Type Confirm Antibody Screen BBK History Checked 08/31/17 08/31/17 11:40 12:38 WBC RBC Hgb Hct MCV MCH MCHC RDW Plt Count MPV Gran % Lymph % (Auto) [place] % (Auto) Eos % (Auto) Baso % (Auto) Gran # Lymph # Haines # Eos # Baso # PT INR APTT Sodium Potassium Chloride Carbon Dioxide Anion Gap BUN Creatinine Est GFR ( Amer) Est GFR (Non-Af Amer) Random Glucose Calcium Magnesium Total Bilirubin AST ALT Alkaline Phosphatase Total Protein Albumin Globulin Albumin/Globulin Ratio Blood Type O NEGATIVE Blood Type Confirm O NEGATIVE Antibody Screen Negative BBK History Checked No verified bt Assessment & Plan - Assessment and Plan (Free Text) Assessment: Hemorrhoids v anal fissure -OR tomorrow for anoscopy under anesthesia -NPO after midnight -IVF -Pain control Will DW Dr. Pillai <Dk Pillai - Last Filed: 08/31/17 20:46> Review of Systems - Gastrointestinal Gastrointestinal: Heartburn (GERD) - Musculoskeletal Musculoskeletal: Radiating Pain into Limb (Lumbar Disc Disease) Past Patient History - GASTROINTESTINAL Other/Comment: External thrombosed Hemorrhoidectomy Results - Vital Signs Recent Vital Signs: Last Vital Signs Temp 98.6 F 08/31/17 18:36 Pulse 62 08/31/17 18:36 Resp 20 08/31/17 18:36 BP 148/90 08/31/17 18:36 Pulse Ox 98 08/31/17 16:42 - Labs Result Diagrams: 08/31/17 11:40 08/31/17 11:40 Assessment & Plan - Assessment and Plan (Free Text) Assessment: Pt has Left lateral Anal Fissure with point localizinf tenderness relieved with bpivicaine transiently Ge will need Lateral Internal Sphincterotomy for relief This Exam-evaluation done under my direct supervision Jerardo Pillai MD FACS
--- NOTE | 2017-08-31 17:28 | RAD ---
HISTORY: medical clearance COMPARISON: 05/10/2017 FINDINGS: LUNGS: No active pulmonary disease. PLEURA: No significant pleural effusion identified, no pneumothorax apparent. CARDIOVASCULAR: No radiographic findings to suggest acute or significant cardiovascular disease. OSSEOUS STRUCTURES: No significant abnormalities. VISUALIZED UPPER ABDOMEN: Normal. OTHER FINDINGS: None. IMPRESSION: No active disease. No significant interval change compared to the prior examination(s).
[2017-08-31] MEDS ORDERED: Magnesium Citrate Oral SOL (300 ml) PO ONE (20:27)
[2017-08-31] MEDS: metroNIDAZOLE IV 500 mg/100 ml 500 MG/100 ML BAG IV SCH (22:14)
--- NOTE | 2017-08-31 23:45 | CARD ---
APPROVED REPORT EKG Measurement Heart [id number] <Conclusion> Sinus bradycardia Possible Inferior infarct, age undetermined Abnormal ECG
[2017-09-01] MEDS: Levothyroxine 100 MCG TAB PO SCH (05:39)
[2017-09-01 07:32] LABS: MEAN CELL VOLUME 90.5 fl (80.0-105.0); MEAN CORPUSCULAR HEMOGLOBIN 30.5 pg (25.0-35.0); MEAN CORPUSCULAR HGB CONC 33.7 g/dl (31.0-37.0); MEAN PLATELET VOLUME 8.9 fl (7.0-11.0); RED CELL DISTRIBUTION WIDTH 12.7 % (11.5-14.5); WHITE BLOOD COUNT 3.7 10^3/ul (4.5-11.0)
[2017-09-01 07:44] LABS: ALB/GLOB RATIO 1.2 (1.1-1.8); ALKALINE PHOSPHATASE 80 U/L (38-126); ALT/SGPT 55 U/L (7-56); AST/SGOT 35 U/L (17-59); BILIRUBIN,TOTAL 1.2 mg/dL (0.2-1.3); BLOOD UREA NITROGEN 11 mg/dL (7-21); CALCIUM 9.1 mg/dL (8.4-10.5); CARBON DIOXIDE 28 mmol/L (21-33); CHLORIDE 105 mmol/L (98-107); GFR AFRICAN-AMERICAN > 60; GLUCOSE,RANDOM 94 mg/dL (70-110); POTASSIUM 3.9 mmol/L (3.6-5.0); SODIUM 143 mmol/L (132-148); TOTAL PROTEIN 7.1 g/dL (5.8-8.3)
[2017-09-01 08:12] LABS: T3 1.15 ng/mL (0.97-1.69); THYROID STIMULATING HORMONE 2.98 mIU/mL (0.46-4.68)
[2017-09-01] MEDS: cefTRIAXone 1 gm 1 GM/100 ML BAG IVPB SCH (09:59)
[2017-09-01] MEDS ORDERED: Bupivacaine 0.5% Inj(30mL) ONE (11:23)
[2017-09-01] MEDS ORDERED: Absorbable Gelatin Sponge Size 100 ONE (11:24)
[2017-09-01] MEDS ORDERED: Midazolam 2 MG/2 ML VIAL ONE (11:26)
[2017-09-01] MEDS ORDERED: Propofol 10 mg/ml Inj (20 ML) ONE (11:26)
[2017-09-01] MEDS ORDERED: Sevoflurane - Inhalation Anesthetic Liq (250 ml) ONE (11:50)
[2017-09-01] MEDS ORDERED: Collagen Hemostat Powder ONE (12:00)
[2017-09-01] MEDS ORDERED: Lactated Ringer's 1,000 ML IV SCH (12:00)
[2017-09-01] MEDS ORDERED: HYDROmorphone 0.5 mg/0.5 ml ISec ONE ×3 (12:34→13:32)
--- NOTE | 2017-09-01 12:35 | PCM.SURG1 ---
Surgeon's Initial Post Op Note - Surgeon's Notes Surgeon: Dr. Pillai [facility] Worker: Dr. Gupta PGY1, Dr. Graf PGY1 Type of Anesthesia: General LMA Pre-Operative Diagnosis: Anal Fissure Operative Findings: see op note Post-Operative Diagnosis: as above Operation Performed: internal sphincterotomy Specimen/Specimens Removed: none Estimated Blood Loss: EBL {In ML}: 15 Drains Used: No Drains Post-Op Condition: Good Date of Surgery/Procedure: 09/01/17 Time of Surgery/Procedure: 12:35
[2017-09-01] MEDS: HYDROmorphone 0.5 mg/0.5 ml ISec IVP PRN ×4 (12:36→13:30)
[2017-09-01] MEDS: metroNIDAZOLE IV 500 mg/100 ml 500 MG/100 ML BAG IV SCH ×2 (17:55→22:43)
[2017-09-01] MEDS: POLYETHYLENE GLYCOL 3350 17 GM/Dose PACKET PO SCH (18:17)
--- NOTE | 2017-09-01 21:55 | CON ---
DATE: 08/31/2017 Jaye Gustafson is a 46-year-old male who came into the hospital with rectal pain for surgical evaluation. HISTORY OF PRESENT ILLNESS: This is a 46-year-old male with history of hypothyroidism and chronic anxiety, came to the hospital with rectal pain, who was evaluated by Dr. Dk Pillai, surgical evaluation has a fissure that necessitate lateral sphincterotomy, internal sphincterotomy. The patient is complaining of rectal pain, cannot get in comfort position especially with sitting. According to the type of work, he sits much of the time and that will make him uncomfortable. He also has pain with bowel movement, although he does not have constipation, but he does feel more pain when he move his bowels. The patient has this symptom almost more than a year, seems to get worse mostly recently, came to the ER for evaluation and treatment. PAST MEDICAL HISTORY: As I mentioned, hypothyroidism. He did have some acid reflux, which he has an EGD for that, chronic anxiety. He has been on Xanax before, which he stopped. ALLERGIES: HE DOES HAVE AN ALLERGY TO IODINATED CONTRAST, ORAL AND IV DYE. FAMILY HISTORY: Noncontributory. REVIEW OF SYSTEMS: As in the present illness, rectal pain and anxiety symptoms. Sometimes he gets acid reflux symptoms. He does also have some discomfort in his chest after taking pills according to the patient only in the afternoon, unclear what is the reason, but he mentioned that. The patient denied any dysuria, any abdominal pain, chest pain, or any focal weakness, numbness or tingling. MEDICATIONS: He takes aspirin, he takes Prilosec 20 mg p.o. daily, he takes levothyroxine 100 mcg p.o. daily. PHYSICAL EXAMINATION: VITAL SIGNS: Temperature 98.3, heart rate 63, blood pressure 125/89, respirations 16, saturating 98%. HEAD AND NECK: Normal. No JVD. No thyromegaly. CHEST: Clear. Good air entry. CARDIAC: Normal. First sound and second sound normal. ABDOMEN: Soft, nontender. EXTREMITIES: No edema. Pulses intact. NEUROLOGIC: Normal. RECTAL: Deferred. Has been done by the surgical team and consistent with lateral fissure. LABORATORY STUDIES: The patient did have white count 4.7, hemoglobin 15.1. hematocrit 44.1, platelets 470. Chemistry: Sodium 142, potassium 4.2, chloride 102, bicarbonate 28. BUN 15, creatinine 0.9. Blood sugar 122. Calcium 9.4. Magnesium 2. Total bilirubin 0.6. AST and ALT and alkaline phosphatase normal. EKG was noted to have sinus rhythm, normal EKG. The patient also had coagulation study, which is meaning PT and PTT; PT/INR is 13, INR is 1.18, and PTT 33.3. Chest x-ray was reported normal. The patient also had CT abdomen and pelvis with p.o. contrast only and was reported no acute findings in the pelvic area or perineum area and the rectum, negative study. 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 We will maintain his medications including levothyroxine and will probably require pain medications, and we will follow up with the surgical team and just continue pain medication p.r.n. and continue other medication including levothyroxine 100 and Protonix 40 subcutaneously, and we will follow up with surgical team. Thank you for consultation, I appreciate. Chet Wheat MD
[2017-09-02 04:31] VITALS: RESP 18
[2017-09-02] MEDS: metroNIDAZOLE IV 500 mg/100 ml 500 MG/100 ML BAG IV SCH (05:10)
[2017-09-02] MEDS: Levothyroxine 100 MCG TAB PO SCH (05:10)
[2017-09-02 07:18] LABS: HEMATOCRIT 42.6 % (42.0-52.0); MEAN CELL VOLUME 90.4 fl (80.0-105.0); MEAN CORPUSCULAR HEMOGLOBIN 30.1 pg (25.0-35.0); MEAN CORPUSCULAR HGB CONC 33.3 g/dl (31.0-37.0); MEAN PLATELET VOLUME 8.8 fl (7.0-11.0); RED CELL DISTRIBUTION WIDTH 12.7 % (11.5-14.5)
[2017-09-02 08:02] VITALS: BP 113/80; PULSE 66; TEMP 98.4; O2SAT 99
[2017-09-02] MEDS: cefTRIAXone 1 gm 1 GM/100 ML BAG IVPB SCH (09:24)
[2017-09-02] MEDS: POLYETHYLENE GLYCOL 3350 17 GM/Dose PACKET PO SCH (09:39)
[2017-09-02] MEDS ORDERED: Enoxaparin 40 mg Syringe SC SCH (10:00)
[2017-09-02] MEDS ORDERED: Dibucaine 1% Oint(1 oz) TOP SCH (10:00)
--- NOTE | 2017-09-02 12:55 | CP.PCM.DIS ---
Provider - Provider Date of Admission: 08/31/17 16:01 Attending physician: Dk Pillai MD Primary care physician: Chet Wheat MD Time Spent in preparation of Discharge (in minutes): 45 Hospital Course - Lab Results Lab Results: Most Recent Lab Values WBC 6.0 10^3/ul (4.5-11.0) D 09/02/17 07:10 RBC 4.71 10^6/uL (3.5-6.1) 09/02/17 07:10 Hgb 14.2 g/dL (14.0-18.0) 09/02/17 07:10 Hct 42.6 % (42.0-52.0) 09/02/17 07:10 MCV 90.4 fl (80.0-105.0) 09/02/17 07:10 MCH 30.1 pg (25.0-35.0) 09/02/17 07:10 MCHC 33.3 g/dl (31.0-37.0) 09/02/17 07:10 RDW 12.7 % (11.5-14.5) 09/02/17 07:10 Plt Count 399 10^3/uL (120.0-450.0) 09/02/17 07:10 MPV 8.8 fl (7.0-11.0) 09/02/17 07:10 Gran % 52.0 % (50.0-68.0) 08/31/17 11:40 Lymph % (Auto) 36.9 % (22.0-35.0) H 08/31/17 11:40 [place] % (Auto) 7.3 % (1.0-6.0) H 08/31/17 11:40 Eos % (Auto) 3.2 % (1.5-5.0) 08/31/17 11:40 Baso % (Auto) 0.6 % (0.0-3.0) 08/31/17 11:40 Gran # 2.42 (1.4-6.5) 08/31/17 11:40 Lymph # 1.7 (1.2-3.4) 08/31/17 11:40 [place] # 0.3 (0.1-0.6) 08/31/17 11:40 Eos # 0.2 (0.0-0.7) 08/31/17 11:40 Baso # 0.03 K/mm3 (0.0-2.0) 08/31/17 11:40 PT 13.0 SECONDS (9.4-12.5) H 08/31/17 11:40 INR 1.18 (0.93-1.08) H 08/31/17 11:40 APTT 33.3 Seconds (25.1-36.5) 08/31/17 11:40 Sodium 143 mmol/L (132-148) 09/01/17 07:00 Potassium 3.9 mmol/L (3.6-5.0) 09/01/17 07:00 Chloride 105 mmol/L (98-107) 09/01/17 07:00 Carbon Dioxide 28 mmol/L (21-33) 09/01/17 07:00 Anion Gap 13 (10-20) 09/01/17 07:00 BUN 11 mg/dL (7-21) 09/01/17 07:00 Creatinine 0.9 mg/dl (0.8-1.5) 09/01/17 07:00 Est GFR ( Amer) > 60 09/01/17 07:00 Est GFR (Non-Af Amer) > 60 09/01/17 07:00 Random Glucose 94 mg/dL (70-110) 09/01/17 07:00 Calcium 9.1 mg/dL (8.4-10.5) 09/01/17 07:00 Magnesium 2.0 mg/dL (1.7-2.2) 08/31/17 11:40 Total Bilirubin 1.2 mg/dL (0.2-1.3) 09/01/17 07:00 AST 35 U/L (17-59) 09/01/17 07:00 ALT 55 U/L (7-56) 09/01/17 07:00 Alkaline Phosphatase 80 U/L (38-126) 09/01/17 07:00 Total Protein 7.1 g/dL (5.8-8.3) 09/01/17 07:00 Albumin 4.0 g/dL (3.0-4.8) 09/01/17 07:00 Globulin 3.2 gm/dL 09/01/17 07:00 Albumin/Globulin Ratio 1.2 (1.1-1.8) 09/01/17 07:00 Thyroxine (T4) 9.0 ug/dL (5.5-11.0) 09/01/17 07:00 Total T3 1.15 ng/mL (0.97-1.69) 09/01/17 07:00 TSH 3rd Generation 2.98 mIU/mL (0.46-4.68) 09/01/17 07:00 Blood Type O NEGATIVE 08/31/17 11:40 Blood Type Confirm O NEGATIVE 08/31/17 12:38 Antibody Screen Negative 08/31/17 11:40 BBK History Checked No verified bt 08/31/17 11:40 - Hospital Course Hospital Course: On Admission: 46 M w PMH of hypothryoidism and GERD came to ED with rectal pain. Pt reports that pain is intermittent and had for a long time. Recently it has gotten more painful. Pain is sharp and localized. Denies abd pain, N/V/D/CP/SOB/hematochezia /hematemesis/melena. Pt tired hemorrhoid cream and sitz bath but didn't help. Pt has regular BM and it is soft. No blood with BM. Patient was taken to OR for sphincterotomy. Patient tolerated procedure well. Patients pain was controlled and he was tolerating a diet as well as ambulating independently. Patient was discharged with instructions to follow up with Dr. Pillai in the office. Discharge Exam - Head Exam Head Exam: ATRAUMATIC, NORMAL INSPECTION, NORMOCEPHALIC - Eye Exam Eye Exam: EOMI - ENT Exam ENT Exam: Mucous Membranes Moist - Respiratory Exam Respiratory Exam: NORMAL BREATHING PATTERN - Cardiovascular Exam Cardiovascular Exam: REGULAR RHYTHM - GI/Abdominal Exam GI & Abdominal Exam: Soft. absent: Distended, Tenderness - Rectal Exam Additional comments: dressing removed at bedside. Foam in rectum - Neurological Exam Neurological exam: Alert, Oriented x3 - Psychiatric Exam Psychiatric exam: Normal Affect, Normal Mood Discharge Plan - Follow Up Plan Condition: STABLE Disposition: HOME/ ROUTINE Instructions: Anal Fissure (DC), Pneumococcal Vaccine for Adults (DC), Influenza Vaccine (DC), Acute Abdominal Pain (DC), Acute Abdominal Pain (GEN), Sphincterotomy (DC) Additional Instructions: Follow up with Dr. Pillai. Follow up with primary care provider. Return to Local ER if symptoms worsen. Referrals: Chet Wheat MD [Primary Care Provider] -
--- NOTE | 2017-09-03 08:24 | PN ---
SUBJECTIVE: The patient had fissure, status post internal sphincterotomy in the rectal area. The patient medicine to his relief. Lying lateral, the patient was uncomfortable. . PHYSICAL EXAMINATION: VITAL SIGNS: Temperature 99.6, heart rate 58, blood pressure 168/75, respirations 16, saturation 96%. HEAD AND NECK: Normal. No JVD. No thyromegaly. CHEST: . CARDIAC: First sound and second sound normal. ABDOMEN: Soft. EXTREMITIES: No edema. . , so the patient was given Toradol, Dilaudid p.r.n. that seems to control his pain. We will continue Zofran p.r.n., Protonix 40, . Continue MiraLAX, probably the patient to be discharged home tomorrow. DISCHARGE DIAGNOSES: 1. Status post internal sphincterotomy, rectal pain. Continue the care and pain medications. Continue medical treatment as per surgeon . 2. Hypothyroidism. We will resume . The patient may be discharged home tomorrow, . Chet Wheat MD
[2017-09-03] MEDS ORDERED: Pantoprazole 40 mg EC Tab PO SCH (10:00)
--- NOTE | 2017-09-03 11:37 | PN ---
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 The patient seems doing well, comfortable, walking around, going home today. He has no new complaint. He is otherwise stable. PHYSICAL EXAMINATION: VITAL SIGNS: On discharge, his temperature 98.4, heart rate 66, blood pressure 113/80, respirations 18, saturation 99%. HEAD AND NECK: Normal. No JVD. No thyromegaly. CHEST: Clear. Good air entry. CARDIAC: First sound and second sound normal. ABDOMEN: Soft and nontender. EXTREMITIES: No edema. NEUROLOGIC: Normal. LABORATORY DATA: White count 6, hemoglobin 14.2, hematocrit 42.6, and platelets are 399. His chemistry noted for TSH 2.98. DISCHARGE DIAGNOSES: 1. Rectal pain. 2. Acute worsening of chronic fissure. 3. Status post sphincterotomy by Dr. Dk Peng. 4. Hypothyroidism. 5. History of anxiety. PLAN: The patient will be discharge home to be followed up with the surgeon. Continue current treatment. Levothyroxine 100 mcg once a day, omeprazole 20 mg once a day, aspirin 81 mg once a day plus local rectal creams prescribed by the surgeon. Chet Wheat MD
--- NOTE | 2017-09-07 15:49 | OP ---
PROCEDURE DATE: 09/01/2017 PREOPERATIVE DIAGNOSES: 1. Anal spasm. 2. Left lateral anal fissure. POSTOPERATIVE DIAGNOSES: 1. Anal spasm. 2. Left lateral anal fissure. PATHOLOGY: Pending. PROCEDURE PERFORMED: On 09/01/2017 is a left lateral internal sphincterotomy. SURGEON: Dk Pillai MD WIRE WINDING MACHINE TENDER: Anthony Ge DO, PGY1 COMMERCIAL PRODUCER: Royce Ronquillo MD ANESTHESIA: Marcaine 0.5% - 10 mL - MAC. OPERATIVE INDICATIONS: The patient is a 46-year-old [place] male with intractable anal spasm and point tenderness in the left lateral 9 o'clock position. He has had injections with relief, but not sustaining in nature and is suffering to the point where he insists upon surgical intervention. He was admitted via the emergency room with this intractable pain. Discussion was held there regarding the surgery and the patient is extremely insistent on having it fixed at this time, as the pain is incapacitating him from being able to function or work. Risks, benefits, and alternatives with their anticipated outcomes were discussed with the patient and he signs the informed consent. OPERATIVE NOTE: The patient was brought to the operating room. He was identified by his wristband. He undergoes time-out procedure and was then placed on the table in a left lateral [place] position. The patient undergoes intravenous sedation and oxygenation monitoring by the anesthesiologist and the buttocks were widely distracted with adhesive tape, prepped with Betadine and the patient is aseptically draped. Infiltration is employed at the 9 o'clock position in the left lateral anoderm and incision made extending from the anus outward and hemostasis is contained with cautery. Care was maintained to avoid the external veins in the region and the internal sphincter is dissected free, elevated on Kari clamp and transected with cautery coagulating current to a distance of approximately 1.1 cm. Hemostasis is maintained with cautery and additional bleeding is noted requiring placement of Avitene and Gelfoam. The wound was now closed with 2-0 Chromic subcuticular closure and Gelfoam was placed in the rectum and a dry dressing over the anus. The patient is awakened, transported to the recovery room in a satisfactory condition. Estimated blood loss during the procedure was less than 30 mL of blood. The surgical residents were present throughout the procedure from beginning to end and were extremely essential in providing exposure and assisting in the procedure itself. This dictation will be electronically signed without being read. Dk Pillai MD
== END 2017-09-02 16:43 | disposition home or self-care (01) ==
LOC: ED 10:51 → ERH 16:01 → INTOOBSV 16:01 → ERH 16:39 → 5RSO 17:10
PROVIDERS: ADMIT Surgery; ATTEND Surgery
DX: K60.2 Anal fissure, unspecified (principal); K59.4 Anal spasm; E03.9 Hypothyroidism, unspecified; I10 Essential (primary) hypertension; K21.9 Gastro-esophageal reflux disease without esophagitis; F41.9 Anxiety disorder, unspecified; Z90.49 Acquired absence of other specified parts of digestive tract; Z79.82 Long term (current) use of aspirin
CPT/HCPCS: 36415; 46080; 71010; 74176; 80053; 83735; 84436; 84443; 84480; 85025; 85027; 85610; 85730; 86850; 86900; 93005; 96365; 96366; 96372; 96375; 96376; 99285; C9113; G0378; J0690; J0696; J1170; J1650; J1885; J2001; J2250; J2405; J2704; J3010; J7040; J7120